=== PATIENT | female | born 1995 | race Two or more races ===

== ENCOUNTER 2017-02-08 12:10 | Outpatient (CLI) | payer BC | END 2017-02-08 23:59 | DX: N76.0 Acute vaginitis (principal); Z11.3 Encounter for screening for infections with a predominantly sexual mode of transmission ==

== ENCOUNTER 2017-06-25 07:50 | Emergency (ER) | payer BC ==
[2017-06-25 08:06] VITALS: BP 127/86
[2017-06-25 08:42] LABS: BILIRUBIN,URINE NEGATIVE (NEGATIVE); PH,URINE 6.5 PH (5.0-7.5)
[2017-06-25 08:47] LABS: UA w/ MICROSCOPIC CHARGE YES
[2017-06-25 08:49] LABS: HCG UR QUAL NEGATIVE
[2017-06-25 09:16] LABS: UR CULTURE IF IND INDICATED
--- NOTE | 2017-06-25 09:30 | ED Physician Documentation ---
History of Present Illness - Stated complaint Stated Complaint: FEMALE - Chief complaint Chief Complaint: UTI - Additonal information Additional information: hx from pt 22 female dysuria and urgency no fever chills no NV no abd pain no flank pain no vag bleed or dc she is off her OCPs and might be preg, LMP started 06/06 Review of Systems Constitutional: denies: Fever, Chills Throat: denies: Sore throat Cardiac: denies: Chest pain / pressure Respiratory: denies: Dyspnea GI: denies: Abdominal Pain, Nausea, Vomiting : reports: Dysuria, Now EGA (maybe). denies: Discharge, Vaginal bleeding Endocrine: denies: Easy bruising / bleeding Immunocompromised: denies: Immunocompromised PD PAST MEDICAL HISTORY - Past Medical History Past Medical History: No - Past Surgical History Past Surgical History: No - Allergies Allergies/Adverse Reactions: Allergies Allergy/AdvReac Type Severity Reaction Status Date / Time No Known Drug Allergies Allergy Verified 06/25/17 08:06 - Social History Does the pt smoke?: No Smoking Status: Never smoker PD ED PE NORMAL - Vitals Vital signs reviewed: Yes - Cardiac Cardiac: RRR - Respiratory Respiratory: No respiratory distress, Clear bilaterally - Abdomen Abdomen: Soft, Non tender - Back Back: No CVA TTP - Neuro Neuro: Alert and oriented X 3 Results - Vitals Vitals: Vital Signs - 24 hr 06/25/17 08:04 Temperature 36.9 C Heart Rate 80 Respiratory 18 Rate Blood Pressure 127/86 H O2 Saturation 100 Oxygen O2 Source Room air - Labs Labs: Laboratory Tests 06/25/17 06/25/17 08:10 08:10 Urine Color YELLOW Urine Clarity CLEAR Urine pH 6.5 Ur Specific [place] <=1.005 <=1.005 Urine Protein NEGATIVE Urine Glucose (UA) NEGATIVE Urine Ketones NEGATIVE Urine Occult Blood SMALL H Urine Nitrite NEGATIVE Urine Bilirubin NEGATIVE Urine Urobilinogen 0.2 (NORMAL) Ur Leukocyte Esterase TRACE H Urine RBC 0-5 Urine WBC 6-10 H Ur Squamous Epith Cells FEW Squamous Urine Bacteria None Seen Ur Microscopic Review INDICATED Urine Culture Comments INDICATED Urine HCG, Qual NEGATIVE Departure - Departure Disposition: 01 Home, Self Care Clinical Impression: Dysuria Condition: Good Instructions: ED Dysuria Uncertain Cause Comments: The test was negative - since it has not been a month since your last period you could be and not have a positive test yet The initial urine testing does not look like you have a bladder infection Cultures are being run and we will call you if antibiotic are indicated Especially since you might be , I do not recommend taking any medication unless the culture is positive. Sometimes drinking cranberry juice can change the pH of your urine and help the symptoms Follow up with your PMD if not better Return if worse
== END 2017-06-25 09:36 | disposition home or self-care (01) ==
LOC: ED 07:50
DX: R30.0 Dysuria (principal)
CPT/HCPCS: 81001; 81003; 81025; 87077; 87086; 87491; 87591; 99282; 99283

== ENCOUNTER 2017-12-09 20:28 | Emergency (ER) | payer OTHER, BC ==
--- NOTE | 2017-12-09 21:46 | ED Physician Documentation ---
PD HPI LOWER EXT INJURY - Stated complaint Stated Complaint: R ANKLE INJURY - Chief complaint Chief Complaint: Ext Problem - History obtained from History obtained from: Patient - History of Present Illness PD HPI LOW EXT INJURY LOCATION: Right, Ankle Type of injury: Twist Where injury occurred: Work Timing - onset: Today Timing - details: Abrupt onset, Still present Improved by: Rest, Immobilization Worsened by: Moving, Palpating Associated symptoms: Swelling, Discolored Contributing factors: No: Anticoagulated, Prior ortho surgery Similar symptoms before: No diagnosis Recently seen: Not recently seen - Additional information Additional information: Patient is a 22 year old female with is presenting to the emergency department for right ankle pain. Patient states that she twisted her ankle earlier today. Patient denies any other trauma at this time. Review of Systems Constitutional: denies: Fever, Chills Eyes: reports: Reviewed and negative Ears: reports: Reviewed and negative Nose: reports: Reviewed and negative Throat: reports: Reviewed and negative Cardiac: reports: Reviewed and negative Respiratory: reports: Reviewed and negative GI: reports: Reviewed and negative : reports: Reviewed and negative Skin: reports: Lesions Musculoskeletal: reports: Extremity pain, Joint pain, Extremity swelling, Joint swelling Neurologic: reports: Reviewed and negative Psychiatric: reports: Reviewed and negative Endocrine: reports: Reviewed and negative Immunocompromised: reports: Reviewed and negative PD PAST MEDICAL HISTORY - Past Medical History Past Medical History: No - Past Surgical History Past Surgical History: No - Allergies Allergies/Adverse Reactions: Allergies Allergy/AdvReac Type Severity Reaction Status Date / Time No Known Drug Allergies Allergy Verified 12/09/17 20:40 - Social History Does the pt smoke?: No Smoking Status: Never smoker Does the pt drink ETOH?: No Does the pt have substance abuse?: No - Immunizations Immunizations are current?: Yes PD ED PE NORMAL - Vitals Vital signs reviewed: Yes - General General: Alert and oriented X 3, No acute distress, Well developed/nourished - HEENT HEENT: Atraumatic, PERRL - Neck Neck: Supple, no meningeal sign - Cardiac Cardiac: RRR - Respiratory Respiratory: No respiratory distress - Neuro Neuro: Alert and oriented X 3, No motor deficit, No sensory deficit, Normal speech Eye Opening: Spontaneous Motor: Obeys Commands Verbal: Oriented GCS Score: 15 - Psych Psych: Normal mood PD ED PE EXPANDED - Extremities Extremities: Right ankle (tenderness and swelling over lateral maleolus), Pedal Pulses Present, Motor intact, Sensory intact, Vascular intact Results - Vitals Vitals: Vital Signs - 24 hr 12/09/17 20:36 Temperature 36.9 C Heart Rate 87 Respiratory 16 Rate Blood Pressure 122/75 O2 Saturation 100 Oxygen O2 Source Room air - Labs Labs: Laboratory Tests 12/09/17 12/09/17 22:07 22:10 Urine Opiates Screen NEGATIVE Ur Oxycodone Screen NEGATIVE Urine Methadone Screen NEGATIVE Ur Propoxyphene Screen NEGATIVE Ur Barbiturates Screen NEGATIVE Ur Tricyclics Screen NEGATIVE Ur Phencyclidine Scrn NEGATIVE Ur Amphetamine Screen NEGATIVE U Methamphetamines Scrn NEGATIVE U Benzodiazepines Scrn NEGATIVE Urine Cocaine Screen NEGATIVE U Cannabinoids Screen NEGATIVE Ethyl Alcohol < 5.0 - Rads (name of study) ankle x-ray Radiology: Final report received (no acute fracture or dislocation) PD MEDICAL DECISION MAKING - ED course Complexity details: reviewed old records, reviewed results, re-evaluated patient , considered differential, d/w patient, d/w family ED course: Patient was seen and examined at bedside. Patient was sent for imaging. when patient returned the results were reviewed. there was no acute fracture or dislocation. Patient was placed in a splint and given crutches. patient requested drug testing for her work and the results were negative. patient required no further inpatient work up and was stable for discharge with outpatient follow up. Departure - Departure Disposition: 01 Home, Self Care Clinical Impression: Ankle sprain Condition: Good Instructions: ED Sprain Ankle Follow-Up: primary,care provider [Other] - As Needed Comments: Your symptoms today are being caused by an ankle sprain. there is no acute fracture or dislocation. You should elevate your ankle and use motrin and tylenol for pain. The most important thing is icing your ankle at least 4 times a day. You should follow up with your doctor if your symptoms persist. You may return to the emergency department at any time for new, worsening or uncontrollable symptoms.
--- NOTE | 2017-12-09 22:02 | XRAY Preliminary Report ---
Exam: XR ANKLE 3 VIEW RT IMPRESSION: No fracture or malalignment. [facility] SITE ID: [id number]
--- NOTE | 2017-12-09 22:02 | XRAY Report ---
EXAM: RIGHT ANKLE RADIOGRAPHY EXAM DATE: 12/09/2017 09:55 PM. CLINICAL HISTORY: IN ER WR.. Lateral ankle pain after twisting injury. COMPARISON: None. TECHNIQUE: 3 views. FINDINGS: Bones: Normal. No fractures or bone lesions. Joints: Normal. No effusion. No subluxations. The ankle mortise is normally aligned. Soft Tissues: Mild lateral soft tissue swelling. IMPRESSION: No fracture or malalignment. [facility] Referring Provider Line: [phone] SITE ID: [id number]
[2017-12-09 22:14] LABS: MUDS CUTOFF CONCENTRATIONS CUTOFF CONC BELOW:
[2017-12-09 22:27] LABS: AMPHETAMINE SCREEN,URINE NEGATIVE (NEGATIVE); COCAINE SCREEN URINE NEGATIVE (NEGATIVE); METHAMPHETAMINES SCREEN, URINE NEGATIVE (NEGATIVE); OPIATE SCREEN, URINE NEGATIVE (NEGATIVE)
[2017-12-09 22:28] LABS: BENZODIAZEPINES SCREEN, URINE NEGATIVE (NEGATIVE); METHADONE SCREEN, URINE NEGATIVE (NEGATIVE); OXYCODONE SCREEN, URINE NEGATIVE (NEGATIVE); PROPOXYPHENE SCREEN, URINE NEGATIVE (NEGATIVE); TRICYCLIC ANTIDEPRESSANT,URINE NEGATIVE (NEGATIVE)
[2017-12-09] MEDS ORDERED: IBUPROFEN 600 MG TABLET PO STA (22:36)
[2017-12-09 22:47] VITALS: BP 121/68
== END 2017-12-09 22:51 | disposition home or self-care (01) ==
LOC: ED 20:28
DX: S93.401A Sprain of unspecified ligament of right ankle, initial encounter (principal); X50.9XXA Other and unspecified overexertion or strenuous movements or postures, initial encounter; Y99.0 Civilian activity done for income or pay
CPT/HCPCS: 1040M; 36415; 73610; 80306; 80320; 99283; A9270

== ENCOUNTER 2017-12-30 12:00 | Outpatient (CLI) | payer BC ==
[2017-12-30 19:53] LABS: THYROID STIMULATING HORMONE 1.64 uIU/mL (0.34-5.60)
[2017-12-30 19:59] LABS: PROLACTIN 7.48 ng/mL
[2017-12-30 20:00] LABS: HB2 TOTAL 14.6 g/dL; HEMOGLOBIN A1C 0.46 g/dL
[2017-12-30 20:21] LABS: FOLLICLE STIMULATING HORMONE 8.09 mIU/mL
[2017-12-30 20:22] LABS: LUTEINIZING HORMONE 14.13 mIU/mL
[2017-12-31 08:37] LABS: ESTRADIOL 84 pg/mL
== END 2017-12-30 12:01 | disposition home or self-care (01) ==
LOC: LAB.N 12:00
PROVIDERS: ATTEND Registered Nurse
DX: N91.1 Secondary amenorrhea (principal); Z11.3 Encounter for screening for infections with a predominantly sexual mode of transmission
CPT/HCPCS: 36415; 81599; 82627; 82670; 83001; 83002; 83036; 84146; 84443; 84702; 87491; 87591

== ENCOUNTER 2018-01-17 08:19 | Outpatient (CLI) | payer BC ==
--- NOTE | 2018-01-17 10:11 | Ultrasound Report ---
PELVIC ULTRASOUND: 01/17/2018 CLINICAL INDICATION: Secondary amenorrhea. TECHNIQUE: Transabdominal pelvic ultrasound performed for global evaluation. Transvaginal pelvic ultrasound performed for detailed evaluation. Real-time scanning performed and static images obtained. FINDINGS: The uterus is retroverted, measuring 7.6 x 5.1 x 3.8 cm. The endometrial echo complex measures 16 mm. No focal myometrial lesion is present. The right ovary measures 3.9 x 2.5 x 2.4 cm, and demonstrates a 2.2 cm hemorrhagic cyst. The left ovary measures 4.8 x 2.5 x 2.4 cm, and demonstrates an 1.9 cm hemorrhagic cyst. A small amount of free fluid is present. IMPRESSION: BILATERAL HEMORRHAGIC CYSTS. PROMINENT ENDOMETRIUM. TD: 01/17/2018 10:10
== END 2018-01-17 08:20 | disposition home or self-care (01) ==
LOC: DI 08:19
PROVIDERS: ATTEND Registered Nurse
DX: N83.202 Unspecified ovarian cyst, left side (principal); N83.201 Unspecified ovarian cyst, right side
CPT/HCPCS: 76830; 76856

== ENCOUNTER 2018-02-17 08:00 | Outpatient (CLI) | payer BC | END 2018-02-17 08:01 | disposition home or self-care (01) | LOC: LAB.N 08:00 | PROVIDERS: ATTEND Registered Nurse | DX: N97.0 Female infertility associated with anovulation (principal) | CPT/HCPCS: 36415; 84144 ==

== ENCOUNTER 2018-03-23 17:08 | Outpatient (CLI) | payer BC | END 2018-03-23 17:09 | disposition home or self-care (01) | LOC: LAB.F 17:08 → LAB 17:09 | PROVIDERS: ATTEND Registered Nurse | DX: N97.0 Female infertility associated with anovulation (principal) | CPT/HCPCS: 84144 ==

== ENCOUNTER 2018-04-27 09:43 | Outpatient (CLI) | payer BC | END 2018-04-27 09:44 | disposition home or self-care (01) | LOC: LAB 09:43 | PROVIDERS: ATTEND Registered Nurse | DX: N97.0 Female infertility associated with anovulation (principal) | CPT/HCPCS: 36415; 84144 ==

== ENCOUNTER 2018-05-31 14:58 | Outpatient (CLI) | payer BC, OTHER ==
--- NOTE | 2018-05-31 16:23 | Ultrasound Report ---
Reason: ENCTR FOR TEST, RESULT POSITIVE Procedure Date: 05/31/2018 Accession Number: [id number] / [id number] Procedure: US - OB First Trimester CPT Code: FULL RESULT: EXAM: FIRST TRIMESTER OBSTETRIC ULTRASOUND (Less than 11 weeks) EXAM DATE: 05/31/2018 04:05 PM. CLINICAL HISTORY: Unsure of dates. LMP: 04/07/2018. COMPARISONS: None. TECHNIQUE: Transabdominal and transvaginal ultrasound examination with static image documentation. CLINICAL DATES: EGA 7 weeks 5 days with SAMEERA 01/12/2019 based on LMP. ASSESSMENT: Gestational Sac: Single intrauterine. Mean gestational sac diameter: 21 mm = 6 weeks 4 days. Embryo: CRL (crown-rump length) 9.5 mm = 11 weeks 0 days. Cardiac activity: 152 beats per minute. Yolk sac: 2.1 mm. Amniotic fluid: Not accurately assessed at this gestational age. Early placenta: Not visible at this gestational age. Other: Right perigestational fluid collection noted 3.2 x 1.4 x 0.9 cm. MATERNAL STRUCTURES: Uterus: Anteverted. Unremarkable. Cervix: Closed. Right Ovary/Adnexa: Unremarkable. The ovary measures 2.8 x 1.4 x 1.5 cm, volume 3 cc. Left Ovary/Adnexa: Unremarkable. The ovary measures 3.5 x 2.0 x 1.9 cm, volume 6.9 cc. Free Fluid: None. Other: None. IMPRESSION: 1. Single viable intrauterine at EGA 7 weeks 0 days with SAMEERA 01/17/2019 based on crown-rump length, which is concordant with clinical dates. 2. Right perigestational fluid collection noted 3.2 x 1.4 x 0.9 cm. [facility]
== END 2018-05-31 14:59 | disposition home or self-care (01) ==
LOC: DI 14:58
PROVIDERS: ATTEND Registered Nurse
DX: Z32.01 Encounter for pregnancy test, result positive (principal)
CPT/HCPCS: 76801; 76817

== ENCOUNTER 2018-06-03 11:13 | Outpatient (CLI) | payer BC, OTHER ==
[2018-06-03 14:48] LABS: MUDS CUTOFF CONCENTRATIONS CUTOFF CONC BELOW:
[2018-06-03 15:59] LABS: AMPHETAMINE SCREEN,URINE NEGATIVE (NEGATIVE); BENZODIAZEPINES SCREEN, URINE NEGATIVE (NEGATIVE); COCAINE SCREEN URINE NEGATIVE (NEGATIVE); METHADONE SCREEN, URINE NEGATIVE (NEGATIVE); METHAMPHETAMINES SCREEN, URINE NEGATIVE (NEGATIVE); OPIATE SCREEN, URINE NEGATIVE (NEGATIVE); OXYCODONE SCREEN, URINE NEGATIVE (NEGATIVE); PROPOXYPHENE SCREEN, URINE NEGATIVE (NEGATIVE); TRICYCLIC ANTIDEPRESSANT,URINE NEGATIVE (NEGATIVE)
== END 2018-06-03 11:14 | disposition home or self-care (01) ==
LOC: LAB.R 11:13
PROVIDERS: ATTEND Registered Nurse
DX: Z36.9 Encounter for antenatal screening, unspecified (principal)
CPT/HCPCS: 80306

== ENCOUNTER 2018-06-03 11:45 | Outpatient (CLI) | payer BC, OTHER ==
[2018-06-03 12:21] LABS: BASOPHILS % (AUTO) 0.3 %; EOSINOPHILS # (AUTO) 0.1 10^3/uL (0.0-0.7); LYMPHOCYTES # (AUTO) 1.2 10^3/uL (1.5-3.5); LYMPHOCYTES % (AUTO) 17.2 %; MEAN CORPUSCULAR HEMOGLOBIN 27.4 pg (27.0-31.0); MEAN CORPUSCULAR HGB CONC 34.2 g/dL (32.0-36.0); MONOCYTES # (AUTO) 0.4 10^3/uL (0.0-1.0); MONOCYTES % (AUTO) 5.1 %; NEUTROPHILS # (AUTO) 5.5 10^3/uL (1.5-6.6); NEUTROPHILS % (AUTO) 76.4 %; PLT - PLATELET COUNT 294 10^3/uL (130-450); RED BLOOD COUNT 4.76 10^6/uL (4.20-5.40); RED CELL DISTRIBUTION WIDTH 13.4 % (12.0-15.0); WHITE BLOOD COUNT 7.1 x10^3/uL (4.8-10.8)
[2018-06-03 12:54] LABS: HB2 TOTAL 13.8 g/dL; HEMOGLOBIN A1C 0.46 g/dL; HEMOGLOBIN A1C % 5.2 % (4.6-6.2)
[2018-06-03 14:21] LABS: BILIRUBIN,URINE NEGATIVE (NEGATIVE); GLUCOSE, URINE (UA) NEGATIVE (NEGATIVE); KETONES,URINE (UA) NEGATIVE (NEGATIVE); LEUKOCYTE ESTERASE, URINE NEGATIVE (NEGATIVE); NITRITE,URINE NEGATIVE (NEGATIVE); OCCULT BLOOD,URINE TRACE-LYSE (NEGATIVE); PROTEIN,URINE NEGATIVE (NEGATIVE); UROBILINOGEN,URINE 0.2 (NORMAL) E.U./dL (NORMAL)
[2018-06-03 14:22] LABS: CLARITY,URINE CLEAR (CLEAR)
[2018-06-03 14:39] LABS: BACTERIA,URINE Rare /HPF (None Seen); RBC,URINE 0-5 /HPF (0-5); SQUAMOUS EPITHELIAL CELL,UR NONE SEEN (<= Few)
[2018-06-04 14:07] LABS: HIV AG/AB 4TH GEN NON-REACTIVE (NON-REACTIVE)
[2018-06-04 15:10] LABS: HEPATITIS B SURFACE ANTIGEN NON-REACTIVE (NON-REACTIVE); HEPATITIS C ANTIBODY NON-REACTIVE (NON-REACTIVE)
== END 2018-06-03 11:46 | disposition home or self-care (01) ==
LOC: LAB 11:45
PROVIDERS: ATTEND Registered Nurse
DX: Z36.9 Encounter for antenatal screening, unspecified (principal)
CPT/HCPCS: 36415; 80306; 81001; 81599; 82947; 83036; 85025; 86592; 86762; 86803; 86850; 86900; 86901; 87340; 87389

== ENCOUNTER 2018-06-17 12:11 | Outpatient (CLI) | payer SELFPAY | END 2018-06-17 12:12 | disposition home or self-care (01) | LOC: LAB 12:11 | PROVIDERS: ATTEND Registered Nurse | DX: Z13.79 Encounter for other screening for genetic and chromosomal anomalies (principal) | CPT/HCPCS: 36415 ==

== ENCOUNTER 2018-08-10 00:43 | Outpatient (CLI) | payer BC, OTHER ==
[2018-08-10 01:08] VITALS: BP 127/88
== END 2018-08-10 01:50 | disposition home or self-care (01) ==
LOC: WFO 00:43 → FBP 00:45 → WFO 01:50
PROVIDERS: ATTEND Registered Nurse
DX: O99.412 Diseases of the circulatory system complicating pregnancy, second trimester (principal); I49.8 Other specified cardiac arrhythmias; O99.89 Other specified diseases and conditions complicating pregnancy, childbirth and the puerperium; R25.2 Cramp and spasm; Z3A.18 18 weeks gestation of pregnancy
CPT/HCPCS: 99212

== ENCOUNTER 2018-08-10 01:53 | Emergency (ER) | payer BC, OTHER ==
[2018-08-10 01:41] LABS: BASOPHILS % (AUTO) 0.2 %; EOSINOPHILS # (AUTO) 0.2 10^3/uL (0.0-0.7); EOSINOPHILS % (AUTO) 2.2 %; HGB - HEMOGLOBIN 12.3 g/dL (12.0-16.0); LYMPHOCYTES # (AUTO) 2.1 10^3/uL (1.5-3.5); LYMPHOCYTES % (AUTO) 20.2 %; MEAN CORPUSCULAR HGB CONC 34.5 g/dL (32.0-36.0); MEAN CORPUSCULAR VOLUME 78.5 fL (81.0-99.0); MONOCYTES # (AUTO) 0.4 10^3/uL (0.0-1.0); MONOCYTES % (AUTO) 4.3 %; NEUTROPHILS # (AUTO) 7.6 10^3/uL (1.5-6.6); NEUTROPHILS % (AUTO) 73.1 %; PLT - PLATELET COUNT 284 10^3/uL (130-450); RED BLOOD COUNT 4.56 10^6/uL (4.20-5.40); RED CELL DISTRIBUTION WIDTH 13.9 % (12.0-15.0); WHITE BLOOD COUNT 10.5 x10^3/uL (4.8-10.8)
[2018-08-10 01:50] LABS: ALBUMIN 3.5 g/dL (3.2-5.5); BILIRUBIN,TOTAL 0.5 mg/dL (0.2-1.0); CALCIUM 8.9 mg/dL (8.5-10.3); CREATININE 0.4 mg/dL (0.4-1.0)
--- NOTE | 2018-08-10 02:22 | ED Physician Documentation ---
History of Present Illness - Stated complaint Stated Complaint: IRREGULAR HB - Chief complaint Chief Complaint: Cardiac - History obtained from History obtained from: Patient - History of Present Illness Timing: Enter time (23:00), Today - Additonal information Additional information: c/o suprapubic cramping since 11PM. patient is 18 weeks . evaluated in [facility] partner dept[facility] before being cleared for ED evaluation. She reportedly had episodes of bradycardia during [facility] center partner eval. Review of Systems Cardiac: reports: Reviewed and negative Respiratory: reports: Reviewed and negative GI: reports: Reviewed and negative : reports: Now EGA (18 weeks). denies: Dysuria, Frequency, Vaginal bleeding PD PAST MEDICAL HISTORY - Past Medical History Past Medical History: Yes - Past Surgical History Past Surgical History: No - Present Medications Home Medications: Ambulatory Orders Medication Instructions Recorded Confirmed Ondansetron HCl [Zofran] 4 mg PO 08/10/18 08/10/18 Pnv95/Ferrous Fumarate/FA 08/10/18 [ Tablet] - Allergies Allergies/Adverse Reactions: Allergies Allergy/AdvReac Type Severity Reaction Status Date / Time No Known Drug Allergies Allergy Verified 08/10/18 01:06 PST - Social History Does the pt smoke?: No Smoking Status: Never smoker Does the pt drink ETOH?: No Does the pt have substance abuse?: No - Immunizations Immunizations are current?: Yes - POLST Patient has POLST: No PD ED PE NORMAL - Vitals Vital signs reviewed: Yes - General General: Alert and oriented X 3, No acute distress, Well developed/nourished - Cardiac Cardiac: RRR, No murmur - Respiratory Respiratory: No respiratory distress, Clear bilaterally - Abdomen Abdomen: Normal bowel sounds, Soft, Non tender, Non distended - Derm Derm: Normal color, Warm and dry - Extremities Extremities: No edema Results - Vitals Vitals: Oxygen O2 Source Room air - EKG (time done) No standard instances Rate: Rate (enter#) (76) Rhythm: NSR [place]: Normal Intervals: Normal RI QRS: Normal Ischemia: Normal ST segments Other comments: Other comments (PVCs) - Labs Labs: Laboratory Tests 08/10/18 08/10/18 08/10/18 01:23 PST 01:23 PST 01:23 PST WBC 10.5 RBC 4.56 Hgb 12.3 Hct 35.8 L MCV 78.5 L MCH 27.0 MCHC 34.5 RDW 13.9 Plt Count 284 MPV 8.0 Neut # (Auto) 7.6 H Lymph # (Auto) 2.1 [place] # (Auto) 0.4 Eos # (Auto) 0.2 Baso # (Auto) 0.0 Absolute Nucleated RBC 0.01 Nucleated RBC % 0.1 Sodium 135 Potassium 3.5 Chloride 102 Carbon Dioxide 23 Anion Gap 10.0 BUN 7 Creatinine 0.4 Estimated GFR (MDRD) 196 Glucose 94 Calcium 8.9 Total Bilirubin 0.5 AST 16 ALT 12 Alkaline Phosphatase 54 Troponin I < 0.04 Total Protein 7.0 Albumin 3.5 Globulin 3.5 Albumin/Globulin Ratio 1.0 Lipase 31 PD MEDICAL DECISION MAKING - ED course Complexity details: reviewed results, re-evaluated patient, considered differential, d/w patient Departure - Departure Disposition: 01 Home, Self Care Clinical Impression: Premature ventricular contractions (PVCs) (VPCs) Condition: Good Instructions: ED Palpitations Discharge Date/Time: 08/10/18 02:45
[2018-08-10 02:45] VITALS: BP 110/74
== END 2018-08-10 02:45 | disposition home or self-care (01) ==
LOC: ED 01:53
DX: O99.412 Diseases of the circulatory system complicating pregnancy, second trimester (principal); I49.3 Ventricular premature depolarization; O99.89 Other specified diseases and conditions complicating pregnancy, childbirth and the puerperium; R25.2 Cramp and spasm; Z3A.18 18 weeks gestation of pregnancy
CPT/HCPCS: 36415; 80053; 83690; 84484; 85025; 93005; 99212; 99283; 99284

== ENCOUNTER 2018-09-03 07:19 | Outpatient (CLI) | payer BC, OTHER ==
--- NOTE | 2018-09-04 10:08 | Ultrasound Report ---
Reason: ENCOUNTER FOR SCREENING,UNSPECIFIED Procedure Date: 09/03/2018 Accession Number: [id number] / [id number] Procedure: US - OB Detailed Eval CPT Code: FULL RESULT: EXAM: COMPLETE OBSTETRICAL ULTRASOUND EXAM DATE: 09/03/2018 08:48 AM. CLINICAL HISTORY: anatomic survey. COMPARISON: OB FIRST TRIMESTER 05/31/2018 3:14 PM. TECHNIQUE: Real-time sonographic evaluation of the fetus performed by the senior it security analyst. Multiple it sales representative static images were saved for review. DATING: Established EGA 21 weeks 2 days with SAMEERA 01/12/2019 based on LMP as per the referring provider. EGA 20 weeks 4 days with SAMEERA 01/17/2019 based on first trimester dating ultrasound. EGA 21 weeks 2 days with SAMEERA 01/12/2019 based on the current ultrasound. GENERAL EVALUATION Conde . Cardiac activity: 152 bpm. movement: Visualized. Presentation: Cephalic. Placenta: Posterior position. No evidence for previa. Umbilical cord: 3 vessel cord. Marginal placental cord origin, less than 10 mm from the edge. Amniotic fluid: Subjectively normal. MVP 3.9 cm. BIOMETRY Bi-Parietal Diameter (BPD): 5.1 cm, 21 weeks 2 days Head Circumference (HC): 19.1 cm, 21 weeks 3 days Abdominal Circumference (AC): 16.0 cm, 21 weeks 1 day Femur Length (FL): 3.6 cm, 21 weeks 3 days Estimated Weight: 410 g, 43rd percentile for 1 weeks 2 days. ANATOMY The intracranial structures, profile, face/nose/lips, spine, 4 chamber heart and outflow tracts, stomach, abdominal wall and cord insertion, diaphragm, kidneys, bladder, and extremities were visualized and demonstrate no abnormality. MATERNAL STRUCTURES Uterus: Unremarkable. Cervix: Long and closed. Transabdominal length 4.6 cm. Right ovary/adnexa: Unremarkable. Left ovary/adnexa: Unremarkable. Free fluid: None. IMPRESSION: 1. Conde live intrauterine with gestational age 21 weeks 2 days based on last menstrual period. 2. Estimated weight is within expected limits for assigned dating. 3. Marginal cord origin, less than 10 mm from the placental edge. Recommend follow-up ultrasound for growth assessment and to evaluate for progression to velamentous cord origin at 28-32 weeks gestational age. 4.Normal anatomic survey. No anatomic abnormalities are detected at this time. [facility] The above findings marginal placental insertion were discussed with Jet Jose by Dr. Anil Penn at 10:06 hrs on 09/04/18.
== END 2018-09-03 07:20 | disposition home or self-care (01) ==
LOC: DI 07:19
PROVIDERS: ATTEND Registered Nurse
DX: Z36.9 Encounter for antenatal screening, unspecified (principal); Z3A.21 21 weeks gestation of pregnancy
CPT/HCPCS: 76811

== ENCOUNTER 2018-10-09 08:45 | Outpatient (CLI) | payer OTHER, BC ==
[2018-10-09 14:14] LABS: HGB - HEMOGLOBIN 10.8 g/dL (12.0-16.0); MEAN CORPUSCULAR HEMOGLOBIN 27.1 pg (27.0-31.0); MEAN CORPUSCULAR HGB CONC 33.9 g/dL (32.0-36.0); MEAN CORPUSCULAR VOLUME 79.9 fL (81.0-99.0); MEAN PLATELET VOLUME 8.6 fL (7.9-10.8); RED CELL DISTRIBUTION WIDTH 13.7 % (12.0-15.0)
== END 2018-10-09 23:59 | disposition home or self-care (01) ==
LOC: LAB.N 08:45
PROVIDERS: ATTEND Nurse Practitioner Obstetrics & Gynecology
DX: Z36.89 Encounter for other specified antenatal screening (principal)
CPT/HCPCS: 36415; 82950; 85027; 86850

== ENCOUNTER 2018-10-14 13:54 | Outpatient (CLI) | payer OTHER, BC | END 2018-10-14 13:55 | disposition home or self-care (01) | LOC: DI 13:54 | PROVIDERS: ATTEND Registered Nurse | DX: R00.2 Palpitations (principal) | CPT/HCPCS: 93306 ==

== ENCOUNTER 2018-10-17 07:57 | Outpatient (CLI) | payer OTHER, BC | END 2018-10-17 07:58 | disposition home or self-care (01) | LOC: LAB 07:57 | PROVIDERS: ATTEND Nurse Practitioner Obstetrics & Gynecology | DX: O99.810 Abnormal glucose complicating pregnancy (principal) | CPT/HCPCS: 36415; 82951; 82952 ==

== ENCOUNTER 2018-11-17 12:50 | Outpatient (CLI) | payer BC, OTHER ==
--- NOTE | 2018-11-17 16:39 | Ultrasound Report ---
Reason: OTHER PLACENTAL DISORDERS,THIRD TRIMESTER Procedure Date: 11/17/2018 Accession Number: [id number] / [id number] Procedure: US - OB F/U or Repeat CPT Code: FULL RESULT: EXAM: FOLLOW-UP OBSTETRICAL ULTRASOUND EXAM DATE: 11/17/2018 02:00 PM. CLINICAL HISTORY: Previous diagnosis of marginal cord insertion, for follow-up COMPARISON: 09/03/2018 TECHNIQUE: Real-time sonographic evaluation of the fetus performed by the 5th grade teacher with me present. Multiple customer service representative teller static images were saved for review. DATING: Established EGA 32 weeks 0 days with SAMEERA 01/12/2019 based on per the referring provider.. EGA 33 weeks 3 days with SAMEERA 01/02/2019 based on the current ultrasound. GENERAL EVALUATION Conde . Cardiac activity: 142 bpm. movement: Present Presentation: Vertex Placenta: Lateral maternal left position. Amniotic fluid: Normal. KELLY 14.4 cm. MVP 6.3 cm. BIOMETRY Bi-Parietal Diameter (BPD): 8.5 cm, 34 weeks 3 days Head Circumference (HC): 30.5 cm, 34 weeks 0 days Abdominal Circumference (AC): 28.2 cm, 32 weeks 2 days Femur Length (FL): 6.3 cm, 32 weeks 5 days Estimated Weight: 2042 g, 63rd percentile for 32 weeks 3 days. ANATOMY Not assessed today. Multiple attempts were made to identify the umbilical cord placental insertion but these were unsuccessful. MATERNAL STRUCTURES Not evaluated IMPRESSION: 1. Conde live intrauterine with gestational age 32 weeks 0 days based on referring provider. 2. Estimated weight is within expected limits for assigned dating. 3. Normal interval growth compared to 09/03/2018. 4. Despite multiple attempts the umbilical cord placental insertion could not be identified on today's study. [facility]
== END 2018-11-17 12:51 | disposition home or self-care (01) ==
LOC: DI 12:50
PROVIDERS: ATTEND Registered Nurse
DX: O43.893 Other placental disorders, third trimester (principal); Z3A.32 32 weeks gestation of pregnancy
CPT/HCPCS: 76816

== ENCOUNTER 2018-12-16 08:00 | Outpatient (CLI) | payer BC, OTHER | END 2018-12-16 23:59 | disposition home or self-care (01) | LOC: LAB.R 08:00 | PROVIDERS: ATTEND Registered Nurse | DX: Z34.90 Encounter for supervision of normal pregnancy, unspecified, unspecified trimester (principal) | CPT/HCPCS: 87491; 87591; 87797 ==

== ENCOUNTER 2018-12-24 11:40 | Outpatient (CLI) | payer BC, OTHER ==
[2018-12-25 15:11] LABS: HEPATITIS C ANTIBODY NON-REACTIVE (NON-REACTIVE)
[2018-12-25 15:12] LABS: HIV AG/AB 4TH GEN NON-REACTIVE (NON-REACTIVE)
== END 2018-12-24 11:41 | disposition home or self-care (01) ==
LOC: LAB 11:40
PROVIDERS: ATTEND Registered Nurse
DX: Z34.90 Encounter for supervision of normal pregnancy, unspecified, unspecified trimester (principal)
CPT/HCPCS: 36415; 81599; 86592; 86803; 87389

== ENCOUNTER 2019-01-09 02:04 | Inpatient (IN) | payer BC, OTHER ==
[2019-01-09] MEDS ORDERED: fentaNYL 100 MCG/2 ML VIAL IVP PRN (04:50)
[2019-01-09] MEDS ORDERED: PENICILLIN G POTASSIUM 5,000,000 UNIT in SODIUM CHLORIDE 0.9% MINIBAG 100 ML IV ONE (04:50)
[2019-01-09] MEDS ORDERED: OXYTOCIN/SODIUM CHLORIDE 500 ML IV PRN (04:50)
[2019-01-09] MEDS: SODIUM CHLORIDE FLUSH 0.9% 10 ML SYRINGE IVP PRN ×2 (05:13→05:45)
[2019-01-09] MEDS: LACTATED RINGERS 1,000 ML IV SCH ×3 (05:13→14:01)
[2019-01-09 05:41] LABS: BASOPHILS % (AUTO) 0.2 %; EOSINOPHILS # (AUTO) 0.1 10^3/uL (0.0-0.7); EOSINOPHILS % (AUTO) 0.6 %; HGB - HEMOGLOBIN 11.7 g/dL (12.0-16.0); LYMPHOCYTES # (AUTO) 1.7 10^3/uL (1.5-3.5); LYMPHOCYTES % (AUTO) 16.3 %; MEAN CORPUSCULAR HEMOGLOBIN 23.7 pg (27.0-31.0); MEAN CORPUSCULAR HGB CONC 32.8 g/dL (32.0-36.0); MEAN CORPUSCULAR VOLUME 72.2 fL (81.0-99.0); MEAN PLATELET VOLUME 8.5 fL (7.9-10.8); MONOCYTES # (AUTO) 0.5 10^3/uL (0.0-1.0); MONOCYTES % (AUTO) 5.2 %; NEUTROPHILS # (AUTO) 8.1 10^3/uL (1.5-6.6); NEUTROPHILS % (AUTO) 77.7 %; PLT - PLATELET COUNT 300 10^3/uL (130-450); RED BLOOD COUNT 4.93 10^6/uL (4.20-5.40); RED CELL DISTRIBUTION WIDTH 16.1 % (12.0-15.0); WHITE BLOOD COUNT 10.4 x10^3/uL (4.8-10.8)
[2019-01-09] MEDS: ONDANSETRON 4 MG/2 ML VIAL IVP PRN ×2 (05:45→16:30)
[2019-01-09] MEDS ORDERED: fent/BUPIV 2 MCG/0.125% 250 ML EP ONE (06:51)
--- NOTE | 2019-01-09 07:01 | ANESTHESIA ---
Pre-Anesthesia VS, & Labs - Diagnosis Active labor - Procedure vaginal delivery Vital Signs: Temp Pulse Resp BP Pulse Ox 37.0 C 86 18 109/76 100 01/09/19 02:07 01/09/19 02:07 01/09/19 02:07 01/09/19 02:07 01/09/19 02:07 Height 5 ft 3 in Weight (kg) 87.725 kg Body Mass Index 30.1 - NPO Other (sips and chips) - Is Patient ?: Yes - Lab Results Current Lab Results: Laboratory Tests 01/09/19 05:20: WBC 10.4, RBC 4.93, Hgb 11.7 L, Hct 35.6 L, MCV 72.2 L, MCH 23.7 L, MCHC 32.8, RDW 16.1 H, Plt Count 300, MPV 8.5, Neut # (Auto) 8.1 H, Lymph # (Auto) 1.7, [place] # (Auto) 0.5, Eos # (Auto) 0.1, Baso # (Auto) 0.0, Absolute Nucleated RBC 0.00, Nucleated RBC % 0.0 Fish Bones: 01/09/19 05:20 Home Medications and Allergies Active Medications Fentanyl (Fentanyl) 50 mcg IVP Q1H PRN PRN Reason: PAIN Last Admin: 01/09/19 05:58 Dose: 50 mcg Lactated Ringer's (Lr) 1,000 mls @ 150 mls/hr IV .Q6H40M ALONA Last Admin: 01/09/19 05:13 Dose: 150 mls/hr Oxytocin/Sodium Chloride (Pitocin/Sodium Chloride) 500 mls @ 999 mls/hr IV PRN PRN; Protocol PRN Reason: POST- HEMORR PREVENTION Penicillin G Potassium 2,500, (000 unit/ Sodium Chloride) 100 mls @ 200 mls/hr IV Q4H [facility] Ondansetron HCl (Zofran Inj) 4 mg IVP Q4H PRN PRN Reason: Nausea / Vomiting Last Admin: 01/09/19 05:45 Dose: 4 mg Sodium Chloride (Normal Saline Flush 0.9%) 10 ml IVP PRN PRN PRN Reason: NEEDED PER PROVIDER ORDERS Last Admin: 01/09/19 05:45 Dose: 10 ml Ondansetron HCl [Zofran] 4 mg PO 08/10/18 Pnv95/Ferrous Fumarate/FA [ Tablet] 08/10/18 Allergies/Adverse Reactions: Allergies Allergy/AdvReac Type Severity Reaction Status Date / Time No Known Drug Allergies Allergy Verified 08/10/18 01:06 PST Anes History & Medical History - Anesthetic History Family history of Anesthesia Complications: Denies Family history of Malignant Hyperthermia: Denies - Medical History Cardiovascular: reports: None Pulmonary: reports: None Gastrointestinal: reports: None Urinary: reports: None Neuro: reports: None Musculoskeletal: reports: None Endocrine/Autoimmune: reports: None Blood Disorders: reports: None Smoking Status: Former smoker (quit 2 years ago) Psychosocial: reports: No issues indicated Exam General: Alert, Oriented x3, Cooperative, No acute distress Dental: WNL Mouth Openin Fingerbreadth Neck Mobility: Normal Mallampati classification: II Thyromental Distance: 4-6 cm Respiratory: Lungs clear, Normal breath sounds, No respiratory distress, No accessory muscle use Cardiovascular: Regular rate, Normal S1, Normal S2, No murmurs Mental/Cognitive Status: Alert/Oriented X3, Normal for patient Plan Anesthesia Type: Epidural Consent for Procedure(s) Verified and Reviewed: Yes Code Status: Attempt Resuscitation ASA classification: 2-Mild systemic disease Is this case an emergency?: No
[2019-01-09] MEDS ORDERED: BUPIVACAINE 0.25% PF 10 ML VIAL ONE (07:03)
[2019-01-09] MEDS ORDERED: NALOXONE 0.4 MG/ML VIAL IVP PRN (07:29)
[2019-01-09] MEDS ORDERED: NALBUPHINE 10 MG/ML AMP IVP PRN (07:29)
[2019-01-09] MEDS ORDERED: ePHEDrine 50 MG/ML VIAL IVP PRN (07:29)
[2019-01-09] MEDS ORDERED: LACTATED RINGERS 500 ML IV ONE (07:29)
[2019-01-09] MEDS ORDERED: ONDANSETRON 4 MG/2 ML VIAL IVP PRN (07:29)
[2019-01-09] MEDS ORDERED: fent/BUPIV 2 MCG/0.125% 250 ML EP PRN (07:29)
[2019-01-09] MEDS ORDERED: ePHEDrine 50 MG/ML VIAL IVP ONE (07:32)
[2019-01-09] MEDS ORDERED: SODIUM CHLORIDE FLUSH 0.9% 10 ML SYRINGE ONE (07:33)
[2019-01-09] MEDS ORDERED: PENICILLIN G POTASSIUM 2,500,000 UNIT in SODIUM CHLORIDE 0.9% 100ML 100 ML IV SCH (09:00)
--- NOTE | 2019-01-09 09:18 | PROVIDER PROGRESS NOTE ---
Labor Progress Note - Uterine Monitoring Uterine Monitoring Mode: positive: External toco Contraction Frequency (min/apart): 2-3 Contraction Intensity: positive: Strong Uterine Resting Tone: positive: Soft - Monitoring Monitor Mode: positive: External ultrasound Heart Rate Baseline: 135 Heart Rate Variability: positive: Moderate (6-25 bmp) Accelerations: positive: Present, 15x15 Decelerations: positive: None Strip Review: positive: Category I - Vaginal Exam Dilation (in cm): 7 Effacement (%): 100 Station: -1 Cervical Position: Anterior - Labor Progress Note Labor Progress Note/Additional Text: S: Cassidy is comfortable w/ her epidural in place. Her mother & Scott are present @ the bedside & are supportive. She has not been able to sleep at all. O: AAOx3, NAD WA gravid female VSS; HR oscillating between 100s and bradycardia (castro in the 30s), SPO2 consistently 98-100 EFM BL 135bpm, +accels, no decels, mod carolyne TOCO: UCs q2-3 min x60 seconds SVE: 7/100/-1, SROM noted for CAF; gilmore catheter placed by myself A: 23y/o @ 38w5d by first trimester US, spontaneous onset of contractions GBS pos s/p 1 dose IV PCN for IPAP FHTs cat I Adequate pain control w/ epidural anesthesia Progressive cervical supervisor records change a period of 5 hours SROM for CAF Maternal arrhythmia w/ normal echo & Holter monitor during , otherwise w/o evidence of cardiopulmonary compromise P: 1. Bedside telemetry for mother 2. Continue GBS prophylaxis w/ IV PCN per protocol 3. Reviewed optimal maternal positioning to facilitate descent 4. Encouraged maternal rest 5. SVE ONLY as clinically indicated secondary to SROM 6. Will reassess x4 hours, earlier PRN 7. Reviewed plan of care w/ pt, family & RN @ bedside; all in agreement, without concerns.
--- NOTE | 2019-01-09 09:20 | HISTORY & PHYSICAL EXAMINATION ---
Admit History - Visit Reason Visit Reason: Contractions (with spontaneous onset 2100, worsening since 00:00) - : 1 Parity: 0 Premature: 0 Ectopic: 0 Care: positive: [facility] Risk/History: positive: None Complications This : positive: None Smoking Status: Former smoker (quit 2 years ago) - Mother's Labs Mother's Blood Type: positive: O Mother's RH: positive: Positive GBS: positive: Group B Strep Positive Rubella Status: positive: Immune Meds/Allgy - Home Medications Home Medications: Ambulatory Orders Medication Instructions Recorded Confirmed Ondansetron HCl [Zofran] 4 mg PO 08/10/18 08/10/18 Pnv95/Ferrous Fumarate/FA 08/10/18 [ Tablet] - Allergies Allergies/Adverse Reactions: Allergies Allergy/AdvReac Type Severity Reaction Status Date / Time No Known Drug Allergies Allergy Verified 08/10/18 01:06 PST Review of Systems - Constitutional Constitutional: reports: Fatigue. denies: Fever, Chills - Respiratory Respiratory: reports: Other (intermittent palpitations, long-standing). denies: Cough, SOB with exertion - Gastrointestinal Gastrointestinal: reports: Abdominal pain (contractions). denies: Constipation, Diarrhea, Change in bowel habits, Nausea, Vomiting, Reflux/heartburn - Genitourinary Genitourinary: reports: Frequency, Urgency. denies: Dysuria - Musculoskeletal Musculoskeletal: reports: Back pain. denies: Muscle pain, Muscle aches, Stiffness - Integumentary Integumentary: denies: Rash, Pruritis, Lesions - Neurological Neurological: denies: General weakness, Headache, Dizziness - Psychiatric Psychiatric: reports: Anxiety. denies: Depression - All Other Systems All Other Systems: reports: Reviewed and negative Physical - Abdominal Exam Vital Signs: Temp Pulse Resp BP Pulse Ox 37.0 C 86 18 109/76 100 01/09/19 02:07 01/09/19 02:07 01/09/19 02:07 01/09/19 02:07 01/09/19 02:07 Contraction Frequency (min/apart): q2-3 minutes Contraction Intensity: positive: Strong Uterine Resting Tone: positive: Soft - Monitoring Heart Rate Baseline: 130 Strip Review: positive: Category I - Presentation Presentation: positive: Vertex - Vaginal Exam Membranes: positive: Membranes intact Dilation (in cm): 4 Effacement (%): 90 Station: positive: 1 (per RN exam, changed from /0 @ 03:00) Cervical Position: positive: Posterior - Speculum Exam Speculum Exam Performed: positive: No Findings: negative: Gross leak Plan for Labor - Plan For Labor I expect patient to be DC'd or transferred within 96 hours.: Yes Plan for Labor: 1. Admit; cbc/clot to hold 2. IV insert 3. Epidural insertion per pt request 4. Horton insertion s/p epidural effective 5. Reassess x4 hours, earlier PRN
[2019-01-09] MEDS: PENICILLIN G POTASSIUM 2,500,000 UNIT in SODIUM CHLORIDE 0.9% 100ML 100 ML IV SCH ×2 (09:25→19:56)
[2019-01-09] MEDS ORDERED: LIDOCAINE-MPF 1% 30 ML VIAL ONE (10:08)
--- NOTE | 2019-01-09 12:20 | PROVIDER PROGRESS NOTE ---
Labor Progress Note - Uterine Monitoring Uterine Monitoring Mode: positive: External toco Contraction Frequency (min/apart): 2-3 Contraction Intensity: positive: Strong Uterine Resting Tone: positive: Soft - Monitoring Monitor Mode: positive: External ultrasound Heart Rate Baseline: 145 Heart Rate Variability: positive: Moderate (6-25 bmp) Accelerations: positive: Present, 15x15 Decelerations: positive: None Strip Review: positive: Category I - Vaginal Exam Dilation (in cm): 9 Effacement (%): edematous Station: -1 Cervical Position: Anterior - Labor Progress Note Labor Progress Note/Additional Text: S: Cassidy is comfortable w/ her epidural; occasional sensation of pressure w/ contractions. No pain. Her mother, Scott & Scott's parents are present at the bedside & are involved & very supportive. O: AAOx3, NAD WA gravid female VSS Tele: SR w/ frequent PVCs (known rhythm for this pt); HR consistently 60s-70s EFM: BL 145bpm +accels, no decels, mod carolyne TOCO: UCs q2-3 min x60 seconds SVE: 9/edematous/-1, descends to 0 w/ contraction, AROM forebag for mod CAF A: 23 y/o @ 39w5d by first trimester US, spontaneous onset of labor @ 2100, progressive cervical change since 0330 FHTs cat I Frequent PVCs, asymptomatic, cardiopulmonary status reassuring GBS pos s/p 2 doses IV PCN for IPAP Adequate pain control w/ epidural anesthesia P: 1. Continue PCN for IPAP per protocol 2. Reviewed optimal maternal positioning to facilitate descent 3. Reviewed initial passive descent 4. Reassess cervical status x2 hours, earlier PRN problem; minimize SVE to only those clinically necessary secondary to ROM 5. Tele to remain on through second stage 6. Reviewed plan of care w/ pt, family & RN @ bedside; all in agreement, without concerns
[2019-01-09] MEDS ORDERED: miSOPROStol 200 MCG TABLET ONE (14:28)
--- NOTE | 2019-01-09 16:31 | PROVIDER PROGRESS NOTE ---
Labor Progress Note - Uterine Monitoring Uterine Monitoring Mode: positive: External toco Contraction Frequency (min/apart): 2-3 Contraction Intensity: positive: Strong (per RN) - Monitoring Monitor Mode: positive: External ultrasound Heart Rate Baseline: 140 Heart Rate Variability: positive: Moderate (6-25 bmp) Accelerations: positive: Present, 15x15 Decelerations: positive: None Strip Review: positive: Category I - Vaginal Exam Dilation (in cm): ant lip Effacement (%): edematous Station: 0 (per RN) - Labor Progress Note Labor Progress Note/Additional Text: TC from bedside RN to update as to status: pt comfortable w/ epidural anesthesia in place SVE per RN: ant lip, edematous, 0 station Reposition & reassess x1-2 hours
--- NOTE | 2019-01-09 16:36 | PROVIDER PROGRESS NOTE ---
Labor Progress Note - Uterine Monitoring Uterine Monitoring Mode: positive: External toco Contraction Frequency (min/apart): 2-3 Contraction Intensity: positive: Strong (per RN) - Monitoring Monitor Mode: positive: External ultrasound Heart Rate Baseline: 140 Heart Rate Variability: positive: Moderate (6-25 bmp) Accelerations: positive: Present, 15x15 Decelerations: positive: None - Vaginal Exam Dilation (in cm): thin ant lip Effacement (%): 100 Station: 1 (per RN) - Labor Progress Note Labor Progress Note/Additional Text: TC from RN to update: thin band of anterior lip, fetus @ +1, unable to bear down secondary to dense regional block. Pt last bolused her epidural @ 1530, requested that she no longer bolus herself; if no increase in sensation over the course of the next hour, will turn off continuous infusion. Reassess cervical status x1 hour, reviewed optimal positioning to facilitate descent.
--- NOTE | 2019-01-09 17:35 | DELIVERY NOTE ---
Delivery Note - Labor Labor: positive: Spontaneous - Delivery Method Delivery Method: positive: Spontaneous vaginal delivery - Presentation Presentation: positive: Vertex, JANE - left occiput anterior - Nuchal Cord Nuchal Cord: positive: None - Anesthetic Anesthetic Type: - Amniotic Fluid Description Amniotic Fluid Description: positive: Clear - Episiotomy Type Episiotomy Type: positive: None - Laceration Laceration: positive: 1st degree, Vaginal - Suture Suture Type: positive: Vicryl Suture Size: positive: 2-0 - Delivery Outcome Delivery Outcome: positive: Livebirth - : positive: Placed in direct skin contact with mother, Stimulated, Warmed sex: positive: Male - Cord Cord: positive: 3 vessels - Placenta Placenta: positive: Intact, Spontaneous - Estimated Blood Loss Estimated Blood Loss (in cc): 250 - Post Delivery Events Post Delivery Events: positive: No post delivery events - Delivery Comments (Free Text/Narrative) Delivery Comments (Free Text/Narrative): Cassidy Egan is a 23 y/o [id number] who presented @ 39w5d by first trimester US in active, spontaneous labor. She received epidural anesthesia per request for discomfort. She was electronically monitored t/o & FHTs were consistently Cat I. She progressed spontaneously w/o intervention over a period of 12 hours to an anterior lip, which persisted for 2.5 additional hours. She received 3 total doses of IV PCN for GBS prophylaxis. She was found to be complete @ 1645, for a total first stage duration 14 hours, 45 minutes. She pushed w/ spontaneous urge to viable male in JANE position over a 1st degree vaginal laceration @ 1709, for a total 2nd stage duration of 24 minutes. Infant vigorous w/ spontaneous, lusty cry. Placed to maternal abd for drying/stim. Delayed cord clamping until cessation of pulsation, then cord clamped x2 by CNM, cut by FOB. 3VC noted, cord blood obtained. Active management of the third stage of labor w/ Pitocin in IV fluids; placenta delivered spontaneously, Thomas, @ 1713, for a total 3rd stage duration of 4 minutes. FF @ U. Vagina & perineum inspected & 1st degree vaginal laceration noted, small L labial hematoma noted; repaired s/p infiltration w/ 10mL 1% lidocaine w/ 2-0vicyrl. Hemostatic & well-approximated, hematoma stable. EBL 250mL. Mother & infant stable, planning to breastfeed. Apgars 9/9; infant nuzzling @ breast w/in 15 minutes of delivery. Weight pending.
[2019-01-09] MEDS ORDERED: HYDROCORTISONE 1% CREAM 28 GM TUBE PR PRN (17:38)
[2019-01-09] MEDS ORDERED: WITCH HAZEL/GLYCERIN 1 EACH MED..PAD TOP PRN (17:38)
[2019-01-09] MEDS ORDERED: MAGNESIUM HYDROXIDE 2,400 MG/30 ML UDC PO PRN (17:38)
[2019-01-09] MEDS: ACETAMINOPHEN 500 MG TABLET PO SCH (22:08)
[2019-01-09] MEDS: DOCUSATE SODIUM 100 MG CAPSULE PO SCH (22:08)
[2019-01-09] MEDS: IBUPROFEN 800 MG TABLET PO SCH (22:08)
[2019-01-10] MEDS: IBUPROFEN 800 MG TABLET PO SCH ×3 (04:15→20:18)
[2019-01-10] MEDS: DOCUSATE SODIUM 100 MG CAPSULE PO SCH ×2 (11:10→20:18)
[2019-01-10] MEDS: ACETAMINOPHEN 500 MG TABLET PO SCH (15:03)
--- NOTE | 2019-01-10 18:40 | Discharge Plan ---
Discharge Plan Disposition: 01 Home, Self Care Condition: Good Diet: Regular Activity Restrictions: pelvic rest x6 weeks Shower Restrictions: No (NO TUB BATHING) Driving Restrictions: No Weight Bearing: Full Weight Instruction Topics: Vaginal After, Breastfeed How To, Jaundice Signs Inf, Exercises Kegel Additional Instructions or Follow Up instructions: x1 week, x3 weeks & x8 weeks in outpt clinic w/ Jet Jose CNM; earlier PRN No Smoking: If you smoke, Please STOP! Call for help. Follow-up with: Jet Jose CNM, [employer] [Provider Admit Priv/Credential] -
--- NOTE | 2019-01-10 18:43 | DISCHARGE SUMMARY ---
"Discharge Summary Admit Date: 01/09/19 Discharge Date: 01/10/19 Discharging Provider: NORMA Code Status: Attempt Resuscitation Condition at Discharge: Good Discharge Disposition: 01 Home, Self Care Discharge Facility Name: [facility] - DIAGNOSES Admission Diagnoses: SPONTANEOUS ACTIVE LABOR @ TERM Discharge Diagnoses with Status of Each Condition: REPAIR OF 1ST DEGREE VAGINAL LACERATION - HPI History of Present Illness: Cassidy Egan is a 23 y/o [id number] who presented @ 39w5d in active, spontaneous labor. She received epidural anesthesia per her request & 3 total doses of IV PCN for GBS prophylaxis. Ts electronically monitored t/o first & second sta ges & consistently cat I. SROM for CAF @ 7cm. Progressed spontaneously & delivered vaginally over a 1st degree vaginal laceration w/o complication. Viable male infant w/ apgars 9/10. No complications. - CONSULTS | PROCEDURES Consultations: anesthesia Procedures: epidural placement AROM forebag @ 9cm viable male Repair 1st degree vaginal laceration - HOSPITAL COURSE Hospital Course: , Cassidy is doing well. She is ambulating & voiding w/o difficulty or discomfort. She reports minimal lochia rubra & denies incontinence. She is passing flatus & tolerating a regular diet. She has been able to successfully latch baby w/ sustained suckling several times & then has pumped & syringe fed him t/o the day today because he has been somnolent. Her intent is to exclusively breastfeed. She denies discomfort. She has used non-opioid analgesia, but she reports she does not think she really needs it. She will have 3 months off to [place] w/ & care for her & her partner will have 2 weeks off to assist her. She has additional excellent social support. She has a hx of severe anxiety & has discussed @ length the increased potential for developing mood d/o in the pp period. She is able to fully articulate pp warning s/sx, including pp depression s/sx, and pp care instructions. We discussed & techniques/initial latch & what to do when baby has not yet consistently latched as well as physiology & anticipatory guidance @ length. She would like d/c to boarder status, given her stable condition, to prevent additional sleep disruptions associated w/ her own evaluation. She feels ready to leave the hospital @ this point & will plan to do so as soon as her is d/c'ed to home. She plans short-interval f/u in the outpatient clinic & has emergency contact information. - ALLERGIES Allergies/Adverse Reactions: Allergies Allergy/AdvReac Type Severity Reaction Status Date / Time No Known Drug Allergies Allergy Verified 08/10/18 01:06 PST - MEDICATIONS Home Medications: Ambulatory Orders Medication Instructions Recorded Confirmed Pnv95/Ferrous Fumarate/FA 08/10/18 [ Tablet] Ibuprofen [Motrin] 800 mg PO Q6H tablet 01/10/19 - PHYSICAL EXAM AT DISCHARGE General Appearance: positive: No acute distress, Alert Eyes Bilateral: positive: Normal inspection, PERRL, EOMI Respiratory: positive: Chest non-tender, No respiratory distress, Breath sounds nml Cardiovascular: positive: Regular rate & rhythm, No murmur, No gallop Abdomen: positive: Non-tender, No distention, Other (FF U-2) Skin: positive: Color nml, No rash, Warm, Dry Extremities: positive: Non-tender, Full ROM, Nml appearance, No pedal edema. negative: Calf tenderness, Iftikhar's sign/cords Neurologic/Psychiatric: positive: Oriented x3, CN's nml (2-12), Motor nml, Sensation nml, Mood/affect nml Physical Exam Other/Comments: Breasts b/l s, nt; nipples b/l intact & everted; colostrum readily expressible. Perineum w/ vaginal sutures notable & intact, minimal edema, no ecchymosis, no erythema, minimal lochia rubra - LABS Result Diagrams: 01/09/19 05:20 - FOLLOW UP Follow Up: x1 week in outpt clinic, earlier PRN - TIME SPENT Time Spent in Discharge (Minutes): 60"
[2019-01-10 22:36] VITALS: BP 106/74
--- NOTE | 2019-01-10 22:46 | Labor Flowsheet ---
Labor Flowsheet Datetime Report Generated by CPN: 01/10/2019 22:46 Datetime: 01/10/2019 22:07 VITAL SIGNS NBP Sys/Malka/Mean (mmHg): 106 : 74 : 81 Pulse: 77 LaborFlag: Labor Datetime: 01/10/2019 11:40 SpO2 (%): 100 Datetime: 01/09/2019 18:23 Membranes Ruptured Date/Time: 01/09/2019 09:10 Datetime: 01/09/2019 17:08 Stage 2 Comments: Head delivered Datetime: 01/09/2019 17:04 ASSESSMENT A Monitor Mode: External US FHR Baseline Rate : 140 FHR Baseline Changes: No Baseline Change Variability: Moderate 6-25 bpm Accelerations: 10X10 Decelerations: Variable Category: Category II Oxygen Method: Room Air STAGE 2 Pushing: Involuntary Pushing Pushing Position: Pushing with Contractions Pushing Progress: Descent with Pushing; Perineal Bulging Datetime: 01/09/2019 17:00 UTERINE ACTIVITY Monitor Mode: External Frequency (min): 2 Quality: Strong Duration (sec): 60 Resting Tone (Palpate): Relaxed Contraction Comments: Pushing Comments: Variables with Pushing Datetime: 01/09/2019 16:51 COMMUNICATION Communication: Provider at Bedside Provider Notified (Name): Hernanagrosa Datetime: 01/09/2019 16:43 Preparation for Delivery: Setup for Delivery Datetime: 01/09/2019 16:37 VAGINAL EXAM Dilatation (cm): 10.0 Effacement (%): 100 Station: 2 Exam by: kh Datetime: 01/09/2019 16:20 Stage of : Labor Provider Reviewed Strip: Yes Notification Reason: Status Update Communication Comments: Anterior lip on right side still but much less swollen. Practice push done - pt unable to push effectively to move baby. Placed back into throne position, and will recheck in one hour or sooner if indicated Datetime: 01/09/2019 16:15 Vaginal Bleeding: None Cervix, Position: Anterior Vaginal Exam Comments: Anterior lip on right side still but much less swollen. Practice push done- pt unable to push effectively to move baby. Datetime: 01/09/2019 16:11 Temperature (F): 98.8 Temperature (C): 37.1 Datetime: 01/09/2019 16:00 Temperature (C): 36.4 Pattern: Normal: <= 5 Contractions in 10 Minutes PAIN Pain Scale: 4 Pain Presence: Intermittent Pain Type: Contraction Pain Location: Abdomen Pain Relief Measures: Comfort Measures Pain Coping: Breathing Through Contractions Pain Assessment Comments: Pt close to complete, doing well with managing labor. Pushed her PCEA a t 1530 last. Will hold off pushing button again so can push more effectively Procedures: Sterile Vag Exam Patient Position/Activity: High Fowlers Comfort Measures: Coaching; Family Support Hygiene: Underpad Changed; Peripad Changed Datetime: 01/09/2019 15:30 Monitor Interventions for UA: [place] Adjusted Datetime: 01/09/2019 15:00 Anesthesia Level Check: T10- Umbilicus Labor/Induction: Interventions; Pushing Methods Datetime: 01/09/2019 14:30 Actions for Decelerations: Side to Side Datetime: 01/09/2019 14:00 ANESTHESIA Anesthesia Plans: Epidural Datetime: 01/09/2019 13:00 ASSESSMENT B Monitor Mode: External US Datetime: 01/09/2019 12:30 Vibroacoustic Stim: Datetime: 01/09/2019 11:00 MATERNAL ASSESSMENT Level of Consciousness: Fully Conscious Headache: Denies RUQ Epigastric Pain: Denies Datetime: 01/09/2019 09:24 Antibiotics: Penicillin IV (Units) @ [id number]@200/hr Datetime: 01/09/2019 08:31 Membrane Status: Ruptured Membranes Rupture Method: Spontaneous Amniotic Fluid Color: Clear Amniotic Fluid Amount: Scant Amniotic Fluid Odor: Normal Membrane Comments: Confirmed by CNMW Datetime: 01/09/2019 08:30 Oxygen Amount (LPM): 10 I/O Interventions: Horton Cath Inserted Patient Care Comments: Provider at bedside Datetime: 01/09/2019 08:00 Pain Goal: 2 Datetime: 01/09/2019 07:45 Respirations: 18 DTR's/Clonus: DTRs 1+ Nausea/Vomiting: Denies Anesthesia Comments: anesthesia present to evaluate irrregular pulse TEACHING Instructional Method: Verbal Plan of Care: Plan of Care Discussed Pain Management: Epidural Medications: Antibiotics Teaching Comments: plan of care discussed Datetime: 01/09/2019 07:16 Epidural Procedure: Loading Dose Datetime: 01/09/2019 07:05 PROCEDURE TIME OUT Procedure Type: 0704 Datetime: 01/09/2019 07:04 Epidural Positioning: Sitting Datetime: 01/09/2019 06:00 MEDICATIONS Analgesics/Sedatives: Fentanyl (mcg) @ 50 Datetime: 01/09/2019 05:45 Antiemetics/Antacids: Zofran (mg) @ 4mg Datetime: 01/09/2019 05:20 PATIENT CARE IV/Blood Work: IV Started; Labs Drawn with IV Start; IV Infusing per Order; IV Bag Number @ 1 Datetime: 01/09/2019 05:15 Unit Routine: [place] to Room; Call [place]; Bed; Visiting Policy; Waiting Areas; Infant Security; Phon e/Cell Phone Use; Photography; Unit Personnel; Handwashing; Flu/Illness Precautions; Monitoring ; IV Pumps; Safety/Fall Risk Prevention; Diet/Nutrition Services; Bathroom Privileges; Routine Time O uts; Medications
== END 2019-01-10 22:40 | disposition home or self-care (01) | DRG 807 ==
LOC: WFO 02:04 → FBP 02:05 → WFO 04:45 → FBP 04:46 → UNDOADMIN 04:46
PROVIDERS: ADMIT Registered Nurse; ATTEND Registered Nurse
PROC: 0HQ9XZZ Repair Perineum Skin, External Approach (ICD-10-PCS; principal; 2019-01-09)
PROC: 10E0XZZ Delivery of Products of Conception, External Approach (ICD-10-PCS; 2019-01-09)
PROC: 10907ZC Drainage of Amniotic Fluid, Therapeutic from Products of Conception, Via Natural or Artificial Opening (ICD-10-PCS; 2019-01-09)
DX: O99.824 Streptococcus B carrier state complicating childbirth (principal); Z37.0 Single live birth; O70.0 First degree perineal laceration during delivery; Z3A.39 39 weeks gestation of pregnancy; Z87.891 Personal history of nicotine dependence; O71.82 Other specified trauma to perineum and vulva
CPT/HCPCS: 85025; 99213; A9270; J7120